=== PATIENT | female | born 1960 | race Caucasian/White ===

== ENCOUNTER 2024-05-28 10:07 | Emergency (ER) | payer BC, SELFPAY ==
[2024-05-28] VITALS (7 sets, daily range): BP systolic 137–166; BP diastolic 88–135; BMI 34.5
--- NOTE | 2024-05-28 11:08 | ED.GENMED ---
History of Present Illness
<Bee Garcia PA-C - Last Filed: 05/29/24 10:14>
General
Chief Complaint: Chest Pain
Source: patient
Exam Limitations: none
Time Seen by Provider: 05/28/24 10:18
Nursing documentation reviewed up to this point in time: agreed with
History of Present Illness
History of Present Illness:
63-year-old female with history of hypertension, hyperlipidemia, anxiety, moderate-sized hiatal hernia, smoker
Presents for intermittent episodes of left-sided chest discomfort that started 2 days ago. She has actually not been feeling well for about a month having early satiety, fatigue.
she also has noticed that she seems winded with walking up steps
2 days ago she was at work and says she suddenly broke out in a cold sweat and felt nauseated. she noticed a pain in her L chest as well
[facility] and had blood work
she has the papers with her which i reivewed; she had an elevated d dimer (0.79), negative HS trop, normal lipase
she was told that she should stay for a stress test but she didn't want to stay
she went home and had another episode of nausea/diaprhoesis and pain yesterday while sitting at home
she has been very anxious about this so she is here today for another opinion
she is scheduled to have endoscopy in 2days with her GI dcotor; 2 weeks ago she saw him (gregorio soares) for acid reflux symptoms, hoarse voice, and eary satiety and she was put on carafate which has not heped
she gets waves of epigastric pain as well; she had previuos endsocopy years ago
no fever, chills, pleuritic pain, leg swelling, vomiting, black stool
Past History
<Bee Garcia PA-C - Last Filed: 05/29/24 10:14>
Past History
ED Past Medical History: HTN, Psychiatric and Other (hiatal hernia)
ED Past Surgical History: Cholecystectomy
Social History
Tobacco: Smoker (1 ppd)
Alcohol: Former
Drug: None
Personal:
Living: with family
Employment: Employed
Review of Systems
<Bee Garcia PA-C - Last Filed: 05/29/24 10:14>
Review of Systems
Allergies reviewed?: Yes
All Other Systems: Not applicable
Phy Exam
<Bee Garcia PA-C - Last Filed: 05/29/24 10:14>
Physical Exam
Physical Exam:
GENERAL: Alert ,very anxious
EYE: pupils equal and reactive
NECK: Supple
ENT: o/p clr, mmm. hoarse voice
CARDIAC: Regular rate and rhythm .no murmur
LUNGS: Clear breath sounds bilaterally, no acute respiratory distress, no wheezes/rales/rhonchi
ABDOMEN: Soft, epigastric tenderness; no r/g, no cvat, normal bowel sounds
NEUROLOGICAL: Alert and oriented, no focal neuro deficits
SKIN: Warm and dry, skin intact.
MUSCULOSKELETAL: No edema, well perfused. neg bassam's sign
PSYCH: Normal and appropriate interaction.
Scores
<Bee Garcia PA-C - Last Filed: 05/29/24 10:14>
Heart Score for Chest Pain Patients
Heart Score for Chest Pain Patients: 4
Heart Score Risk: 20.3% MACE over next 6 weeks
<Griselda Spence PA-C - Last Filed: 05/28/24 22:53>
Heart Score for Chest Pain Patients
STEMI patient?: No
History: Moderately Suspicious
ECG: Nonspecific Repolarization
Age: >45 - <65 years
Risk Factors: 1 or 2 Risk Factors
Troponin: </= Normal Limit
Heart Score for Chest Pain Patients: 4
Heart Score Risk: 20.3% MACE over next 6 weeks
Course
<Bee Garcia PA-C - Last Filed: 05/29/24 10:14>
Orders/Labs/Results
Orders:
Orders
05/28/24 10:09
ECG [Electrocardiogram (*1)] Urgent
Reason for Study: Chest Pain
EKG- Treatment ONCE
05/28/24 10:59
CT Pe/abd/pel W Urgent
Comment: irineo; GERD; hiatal hernia; h/o alcohol abuse prev
Reason For Exam: upper abd pain, early satiety, nausea, diaphoresis
Pantoprazole [Protonix IV] 40 mg IV NOW STA
05/28/24 11:06
Complete Blood Count/With Diff Urgent
Comprehensive Metabolic Panel Urgent
Lipase Urgent
Troponin I Urgent
05/28/24 13:07
Lorazepam [Ativan] 1 mg IV NOW STA
05/28/24 14:32
Consult Cardiology [CARDIOLOGY CONSULT] Urgent
Consulting Provider: Yariel Bryan
Was physician already notified: Yes
05/28/24 15:41
Echo 2D MMode Color/Doppler Urgent
Reason for Study: chest pain
Cardiology Consult: Yariel Bryan
05/28/24 16:11
Troponin I Urgent
Abnormal Lab Results
05/28/24
11:06
WBC 11.9 H 10^3/uL
(4.8-10.8)
MCV 80.0 L fL
(81.0-99.0)
MCH 26.8 L pg
(27.0-31.0)
RDW 16.6 H %
(11.5-14.5)
Plt Count 433 H 10^3/uL
(130-400)
Absolute Neuts (auto) 7.8 H 10^3/uL
(1.4-6.5)
Absolute Monos (auto) 1.1 H 10^3/uL
(0.1-0.6)
Glucose 119 H mg/dl
(70-99)
05/28/24 11:06
05/28/24 11:06
Vital Signs
Blood pressure: 133/85
Initial and Last Documented VS:
Initial Vital Signs
Temp Pulse Resp BP Pulse Ox
36.7 C 99 16 164/102 99
05/28/24 10:16 05/28/24 10:16 05/28/24 10:16 05/28/24 10:16 05/28/24 10:16
Last Documented Vital Signs
Temp Pulse Resp BP Pulse Ox
36.7 C 82 18 160/91 98
05/28/24 10:16 05/28/24 16:15 05/28/24 16:15 05/28/24 17:37 05/28/24 17:38
<Griselda Spence PA-C - Last Filed: 05/28/24 22:53>
Orders/Labs/Results
Orders:
Orders
05/28/24 10:09
ECG [Electrocardiogram (*1)] Urgent
Reason for Study: Chest Pain
EKG- Treatment ONCE
05/28/24 10:59
CT Pe/abd/pel W Urgent
Comment: irineo; GERD; hiatal hernia; h/o alcohol abuse prev
Reason For Exam: upper abd pain, early satiety, nausea, diaphoresis
Pantoprazole [Protonix IV] 40 mg IV NOW STA
05/28/24 11:06
Complete Blood Count/With Diff Urgent
Comprehensive Metabolic Panel Urgent
Lipase Urgent
Troponin I Urgent
05/28/24 13:07
Lorazepam [Ativan] 1 mg IV NOW STA
05/28/24 14:32
Consult Cardiology [CARDIOLOGY CONSULT] Urgent
Consulting Provider: Yariel Bryan
Was physician already notified: Yes
05/28/24 15:41
Echo 2D MMode Color/Doppler Urgent
Reason for Study: chest pain
Cardiology Consult: Yariel Bryan
05/28/24 16:11
Troponin I Urgent
Abnormal Lab Results
05/28/24
11:06
WBC 11.9 H 10^3/uL
(4.8-10.8)
MCV 80.0 L fL
(81.0-99.0)
MCH 26.8 L pg
(27.0-31.0)
RDW 16.6 H %
(11.5-14.5)
Plt Count 433 H 10^3/uL
(130-400)
Absolute Neuts (auto) 7.8 H 10^3/uL
(1.4-6.5)
Absolute Monos (auto) 1.1 H 10^3/uL
(0.1-0.6)
Glucose 119 H mg/dl
(70-99)
05/28/24 11:06
05/28/24 11:06
Vital Signs
Initial and Last Documented VS:
Initial Vital Signs
Temp Pulse Resp BP Pulse Ox
36.7 C 99 16 164/102 99
05/28/24 10:16 05/28/24 10:16 05/28/24 10:16 05/28/24 10:16 05/28/24 10:16
Last Documented Vital Signs
Temp Pulse Resp BP Pulse Ox
36.7 C 82 18 160/91 98
05/28/24 10:16 05/28/24 16:15 05/28/24 16:15 05/28/24 17:37 05/28/24 17:38
<Bee Garcia PA-C - Last Filed: 05/29/24 10:14>
MDM/Problems Addressed
Differential Diagnosis Includes:
GERD, PUD, anxiety, acs, pe pneumonia, malingnayc, pancreatitis
MDM/Problems Addressed:
63 y/o F
h/o HTN, GERD, depression, smoker
here with 1 mo hoarse voice, early satiety, epigastirc pain
has scheduled endoscopy in 2 days for this
but 2 days ago had episode of L chest pain with nausea/cold sweat while at rest and then another episode yesterday while at rest
both resolved
she is quite anxious about these episodes a
[facility] 2 days ago after 1st episode
her D dimer was elevated mildly
trop neg
pt had no imaging
she has no symptoms currently in her chest but is tearful and anxious
on exam her EKG is nonspecific ST changes
pt's case d/w dr. sandoval who took over for dr gaviria
reocmmended given pt's heart score, that we consult cardiology
i do suspect her sypmtoms are largely GI but entertain possibliyt of unstable angina
dispo per cards
<Griselda Spence PA-C - Last Filed: 05/28/24 22:53>
*Critical Care Note
Total Time (30-74mins, 75-104mins- exclusive of procedures): Not Applicable
<Griselda Spence PA-C - Last Filed: 05/28/24 22:53>
Update Note
Update Note:
Update: Received patient in signout pending cardiology eval. Spoke with cardiology PA. Plan will be to obtain cardiac echo. They have sent prescription for hydrochlorothiazide 25 mg and prescription for lab work in 2 weeks. If echo normal�plan
will be for discharge home with cardiac follow-up outpatient.
Update: Spoke with senior trial attorney, Dr. Bryan following cardiac echo. Stable for discharge home from cardiology perspective. Patient remains well and comfortable appearing. She was provided follow-up with cardiology in a few weeks. Advised
follow-up with primary care as well. Return precautions discussed.
ED Attending Note
<Bee Garcia PA-C - Last Filed: 05/29/24 10:14>
-
Portions of this chart may have been created with voice recognition software.� Occasional wrong word or��sound alike� substitutions may have occurred due to the inherent limitations of voice recognition software.
Discharge Plan
Departure
Patient Disposition: Home (Routine Discharge)
Date of Disposition: 05/28/24
Time of Disposition: 17:28
Patient with high blood pressure during this ER visit?: Yes
Condition: Good
Covid-19: Not Applicable
Discharge Problem:
Chest pain
Instructions: Chest pain - Discharge instructions
Prescriptions:
New
hydrochlorothiazide 25 mg tablet
25 mg PO DAILY Qty: 30 11RF
No Action
amlodipine 5 mg tablet
5 mg PO DAILY
omeprazole 40 mg capsule,delayed release(DR/EC)
40 mg PO DAILY
dextroamphetamine-amphetamine 30 mg tablet
30 mg PO BID
lorazepam 0.5 mg tablet
0.5 mg PO HSPRN PRN (Reason: SLEEP)
Thera Tablet
1 tab PO DAILY
aspirin 81 mg Tablet,Delayed Release (Dr/Ec)
81 mg PO DAILY
ginkgo biloba 40 mg Tablet
40 mg PO DAILY
albuterol sulfate [ProAir HFA] 90 mcg/actuation Hfa Aerosol Inhaler
2 puff INHALATION R Q6HPRN PRN (Reason: SOB)
vitamin B complex Capsule
1 cap PO DAILY
budesonide-formoterol 160-4.5 mcg/actuation HFA aerosol inhaler
2 puff INHALATION R BID
omega 3-niu-tfb-fish oil [Fish Oil] 1,000 mg (120 mg-180 mg) Capsule
1 cap PO DAILY
magnesium oxide 400 mg magnesium Tablet
400 mg PO DAILY
vitamin D3-vitamin K2 1,250-200 mcg Capsule
1 cap PO DAILY
hydrochlorothiazide 12.5 mg capsule
12.5 mg PO DAILY Qty: 30 0RF
Referrals:
Yariel Bryan MD [Active] - 06/16/24 10:40 am (You have an appt to see Dr. Bryan's nurse practitioner, Stefania, at the [place] office on 06/16/24 at 10:40 AM. Please call [phone] if you need to reschedule.)
Arnel Gale OS [Non-Admitting Privileges] - Keep scheduled appt
Niki Harrington CRNP [Non-Admitting Privileges] - Follow up in 1 week
Activity Restrictions/Additional Instructions:
-Continue taking losartan (Cozaar) 100 mg once a day
-START taking HCTZ (hydrochlorothiazide) 25 mg once a day
-Check non-fasting blood work in 2 weeks to check kidney function and electrolytes after starting HCTZ
RETURN TO THE EMERGENCY DEPARTMENT WITH ANY WORSENING CHEST PAIN OR SHORTNESS OF BREATH, PERSISTENT LIGHTHEADEDNESS/DIZZINESS, SEVERE BACK PAIN, WORSENING IN CURRENT SYMPTOMS, OR ANY OTHER CONCERNS
Follow-up with cardiology as described above. You should also follow-up with primary care in a week.
Monitor symptoms closely and return to the emergency department with any acute worse symptoms or any other concerns
Interventions
Interventions:
*Risk Screen - Suicide Last Done: 05/28/24 17:00
*General Assessment Last Done: 05/28/24 12:34
*Neglect/Abuse Screening Last Done: 05/28/24 12:34
*ED- Fall Risk Assessment Last Done: 05/28/24 12:34
*ED COVID-19 Vaccine History Last Done: 05/28/24 12:34
*Nursing Disposition Last Done: 05/28/24 18:40
ED- Cardiac Assessment Last Done: 05/28/24 15:42
Discharge Date and Time
Discharge Date/Time: 05/28/24 18:00
Print Language: BRUNEIAN
[2024-05-28] MEDS: PROTONIX IV 40 MG IV (11:09)
[2024-05-28 11:16] LABS: % Basophils 1.2 % (0-2); % Eosinophils 2.9 % (0-6); % Immature Granulocytes 0.3 % (0-0.5); % Monocytes 8.9 % (1.7-9.3); % Neutrophils 65.7 % (42.2-75.2); Absolute Basophils 0.1 10^3/uL (0-0.2); Absolute Eosinophils 0.4 10^3/uL (0-0.7); Absolute Lymphocytes 2.5 10^3/uL (1.2-3.4); Absolute Monocytes 1.1 10^3/uL (0.1-0.6); Absolute Neutrophils 7.8 10^3/uL (1.4-6.5); Hematocrit 38.8 % (37.0-47.0); Mean Corp Hgb Conc. 33.5 g/dL (33.0-37.0); Mean Corpuscular Hgb 26.8 pg (27.0-31.0); Mean Platelet Volume 9.1 fL (7.4-10.4); Nucleated Red Blood Cells % 0 %; Platelet Count 433 10^3/uL (130-400); Red Blood Cell Count 4.85 10^6/uL (4.20-5.40); Red Cell Dist. Width 16.6 % (11.5-14.5); White Blood Cell Count 11.9 10^3/uL (4.8-10.8)
[2024-05-28 11:29] LABS: ALT (SGPT) 13 U/L (0-35); AST (SGOT) 16 U/L (14-36); Alkaline Phosphatase 83 U/L (38-126); Blood Urea Nitrogen 13 mg/dl (7-17); Calcium 9.5 mg/dl (8.4-10.2); Carbon Dioxide 27 mmol/L (22-30); Chloride 106 mmol/L (98-107); Estimated Creatinine Clearance 69 ml/min; Glucose 119 mg/dl (70-99); Lipase 105 U/L (23-300); Potassium 4.6 mmol/L (3.5-5.1); Sodium 140 mmol/L (135-145); Total Bilirubin 0.6 mg/dl (0.2-1.3); Total Protein 6.5 g/dl (6.3-8.2); eGFR > 60.00
[2024-05-28 11:40] LABS: Troponin I < 0.012 ng/ml
[2024-05-28] MEDS: ATIVAN 1 MG IV (13:11)
--- NOTE | 2024-05-28 14:35 | CON.CAR ---
Addendum entered and electronically signed by Yariel Bryan MD 05/28/24 16:12:
I saw and examined the patient.
The SUPERVISORY AIR INTERCEPT CONTROLLER or PA's note was reviewed and I agree with the note.
Comment: General: Well developed, well nourished in NAD.
Neck: Supple, no JVD, HJR, carotids +2 B/L, no bruits bilaterally.
Heart: Non displaced PMI, RRR, no murmurs, No S3, S4, no rubs.
Lungs: Scattered rhonchi
Extremities: No clubbing, cyanosis or edema bilaterally.
Neuro: Grossly nonfocal, awake, alert and oriented x3.
Jennifer is a history of tobacco abuse, hyperlipidemia, recovered alcohol use disorder, hiatal hernia. She presents complains of chest discomfort. She has had symptoms of chest discomfort since February 2024. It is in her upper abdomen. It occurs at
rest and not with activity. She can climb steps without stopping. She has had increasing fatigue as well. She was seen at [facility] in May 26, 2024 and was recommended to stay for stress test but opted to go home. She now presents with
similar symptoms. Of note her chest pain can last for hours. It is not activity related. Troponin is negative x 1 and EKG is normal. She is also concerned about her blood pressure. Of note she had an episode of diaphoresis earlier today with
some dizziness. This has resolved
Will check second troponin if negative patient be okay for discharge provided echocardiogram is okay. Will add HCTZ to losartan for hypertension. She is scheduled for endoscopy on 05/30/2024. Will also arrange outpatient stress testing. Discussed
with patient, , ER staff.
Original Note:
Consultation
Consultation Request
Date/Time Consultation Requested: 05/28/24
Date/Time Consultation Performed: 05/28/24
Requesting Provider: Jose RAZO in ER
Performing Provider: Dr. Bryan
Reason for Consultation: Chest pain, HTN
Medical History
-
History of Present Illness:
Patient came to [facility] ER today with chest and epigastric pain that started in February and cardiology is consulted for possible angina. Patient reports previous cholecystectomy in 2020 and being told by her GI provider, Dr. Gale, at that time that
she also had a moderate sized hiatal hernia and was recommended to lose weight and quit smoking, but patient reports she has not been able to follow through on either of those despite her efforts. Patient says that starting in February she had
epigastric pain that would last for hours at a time and was associated with dyspepsia and occasionally regurgitation of large amounts of food, but patient also noticed increasing LOZOYA in the same time frame. Patient saw her PCP and then her GI
provider and is set up for an upper endoscopy on Sunday at [facility]. Patient reports that in the last 2 days she has had episodes of abrupt onset upper chest pain with diaphoresis that prompted evaluation at [facility] on 05/26/24.
Patient lives in [place] and went to [facility] because it is close to her home. Patient reports she had normal Troponin and elevated D-dimer and was recommended admission for possible stress test, but opted not to stay because in her
opinion the hospital was outdated and she had a bad gut feeling, patient left. Patient then got a call from the GI center to tell her that if her BP was not under control on Sunday that her procedure would be cancelled. Patient says that she had
ongoing symptoms of upper chest pain, epigastric pain, LOZOYA and then concern about her procedure being cancelled and so she came to the ER today. Patient is able to eat in the room now without increased pain.
PMH:
HTN
h/o hiatal hernia
Hyperlipidemia
Recovered ETOH use disorder
Active smoker
Past Medical History
Past Medical History: Other (in HPI)
Past Surgical History: Cholecystectomy (2020) and Tonsilectomy
Social History
Tobacco: Smoker (started smoking age 14 or 15 and still an active smoker 1 ppd)
Alcohol: Former (sober for 19 years, former severe Etoh use disorder)
Drug: None
Personal: Partner
Living: With Family
Employment: Employed
Family History
Family History: Other (father complications of an MVA, mother pancreatic cancer, sister suicide. No known FH of premature CAD.)
Allergies / Home Medications
Allergy/AdvReac Type Severity Reaction Status Date / Time
Penicillins Allergy Unknown Unknown Verified 02/21/22 11:09
almond Allergy Unknown Verified 02/21/22 11:09
�Medication �Instructions �Recorded �Confirmed �Type
albuterol sulfate 90 mcg/actuation 2 puff inhalation R Q6HPRN PRN SOB 02/21/22 02/21/22 History
aerosol inhaler (ProAir HFA)
amlodipine 5 mg tablet 5 mg PO DAILY 02/21/22 02/21/22 History
aspirin 81 mg tablet,delayed 81 mg PO DAILY 02/21/22 02/21/22 History
release
budesonide-formoterol HFA 160 2 puff inhalation R BID 02/21/22 02/21/22 History
mcg-4.5 mcg/actuation aerosol
inhaler
dextroamphetamine-amphetamine 30 30 mg PO BID 02/21/22 02/21/22 History
mg tablet
ginkgo biloba 40 mg tablet 40 mg PO DAILY 02/21/22 02/21/22 History
hydrochlorothiazide 12.5 mg capsule 12.5 mg PO DAILY #30 caps 02/21/22 Rx
lorazepam 0.5 mg tablet 0.5 mg PO HSPRN PRN SLEEP 02/21/22 02/21/22 History
magnesium oxide 400 mg PO DAILY 02/21/22 02/21/22 History
omega 6-cbe-sug-fish oil 1,000 mg 1 cap PO DAILY 02/21/22 02/21/22 History
(120 mg-180 mg) capsule (Fish Oil)
omeprazole 40 mg capsule,delayed 40 mg PO DAILY 02/21/22 02/21/22 History
release
therapeutic multivitamin 1 tab PO DAILY 02/21/22 02/21/22 History
vitamin B complex 1 cap PO DAILY 02/21/22 02/21/22 History
vitamin D3 1,250 mcg (50,000 1 cap PO DAILY 02/21/22 02/21/22 History
unit)-vitamin K2 200 mcg capsule
Review of Systems
-
History Source: Patient
All other systems: Negative unless noted
Physical Exam
Vital Signs
Temp Pulse Resp BP Pulse Ox
98.0 F 89 25 166/113 99
05/28/24 10:16 05/28/24 13:03 05/28/24 13:03 05/28/24 13:03 05/28/24 13:00
GEN: NAD. AAOx3. Eating box lunch upon my arrival to the room
HEENT: EOMI, MMM
LUNGS: RA. CTA B/L. No audible wheeze
CV: SR. Reg, S1/S2, no murmur
ABD: soft, BS+, NT, ND
EXT: 2+ radial and PT pulses B/L. No edema B/L
NEURO: Gross non-focal
SKIN: Warm, dry and pink. No rash
Lab Results
05/28/24 11:06
05/28/24 11:06
Troponin I < 0.012 ng/ml 05/28/24 11:06
Impression / Plan
-
PCP: Niki RAZO
GI: Dr. Arnel Garcia
Impression:
Chest and epigastric pain
HTN
h/o hiatal hernia
Hyperlipidemia
Recovered ETOH use disorder
Active smoker
Echo 05/28/24: Study pending
Plan:
-Patient came to [facility] ER today with chest and epigastric pain that started in February and cardiology is consulted for possible angina. Patient reports previous cholecystectomy in 2020 and being told by her GI provider, Dr. Gale, at that time
that she also had a moderate sized hiatal hernia and was recommended to lose weight and quit smoking, but patient reports she has not been able to follow through on either of those despite her efforts. Patient says that starting in February she had
epigastric pain that would last for hours at a time and was associated with dyspepsia and occasionally regurgitation of large amounts of food, but patient also noticed increasing LOZOYA in the same time frame. Patient saw her PCP and then her GI
provider and is set up for an upper endoscopy on Sunday at [facility]. Patient reports that in the last 2 days she has had episodes of abrupt onset upper chest pain with diaphoresis that prompted evaluation at [facility] on 05/26/24.
Patient lives in [facility] and went to [facility] because it is close to her home. Patient reports she had normal Troponin and elevated D-dimer and was recommended admission for possible stress test, but opted not to stay because in her
opinion the hospital was outdated and she had a bad gut feeling, patient left. Patient then got a call from the GI center to tell her that if her BP was not under control on Sunday that her procedure would be cancelled. Patient says that she had
ongoing symptoms of upper chest pain, epigastric pain, LOZOYA and then concern about her procedure being cancelled and so she came to the ER today. Patient is able to eat in the room now without increased pain.
-ECG reviewed by me is SR with nonspecific ST changes.
-Troponin undetectable despite days of pain lasting hours at a time.
-Check echo, ordered by me.
-BP as high as 164/102 on admission and down to 133/85 on last check by me while in the room. Patient takes losartan 100 mg daily and amlodipine 5 mg daily as an outpatient. Will add HCTZ 25 mg daily.
-Check BMP in 2 weeks, lab slip printed and sent to ER for them to give to patient at d/c
-Low suspicion for ACS given prolonged symptoms and undetectable Troponin.
-Patient already scheduled for upper endoscopy on Sunday for h/o hiatal hernia.
-Smoking cessation recommended. Patient had nightmares with Chantix in the past.
[2024-05-28 16:44] LABS: Troponin I < 0.012 ng/ml
== END 2024-05-28 18:00 | disposition home or self-care (01) ==
LOC: EMR 10:07
PROVIDERS: Physician Assistant; Physician Assistant Medical; CONSULT PHYSICIAN Internal Medicine Cardiovascular Disease; EMERGENCY PHYSICIAN Emergency Medicine
DX: R07.89 Other chest pain (principal); I10 Essential (primary) hypertension; K44.9 Diaphragmatic hernia without obstruction or gangrene; E78.00 Pure hypercholesterolemia, unspecified; F41.9 Anxiety disorder, unspecified; F17.200 Nicotine dependence, unspecified, uncomplicated; Z79.899 Other long term (current) drug therapy; Z90.49 Acquired absence of other specified parts of digestive tract
CPT/HCPCS: 99284; 96374; 96375; 71275; 74177; 80053; 83690; 84484; 85025; 93005; 93306; Q9967